=== PATIENT | male | born 1950 | race Caucasian/White ===

== ENCOUNTER 2017-02-03 07:26 | Day surgery (SDC) | payer BC ==
--- NOTE | 2017-01-25 15:37 | HP ---
PREOPERATIVE HISTORY AND PHYSICAL: DATE OF SURGERY/ADMISSION: 02/03/17. DATE OF OFFICE VISIT/ENCOUNTER: 01/25/17 ATTENDING SURGEON: Marge Ogden MD. PROCEDURE: Left hand Dupuytren's excision. CHIEF COMPLAINT: Dupuytren's nodules, left hand. 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 Dr. Ogden has performed surgery in the past for Du puytren's contracture of his left ring finger that has been doing well, however he has three Dupuytr en's nodules in the palm of his hand currently that have become quite bothersome, particularly when he tries to hold on to things. He is interested having these surgically excised and has consented t o proceed with surgery. PAST MEDICAL HISTORY: 1. Hypercholesterolemia. 2. Mild depression. 3. Diverticulitis. PAST SURGICAL HISTORY: 1. Dupuytren's excision, left hand approximately 10 years ago. 2. Rotator cuff repair, bilateral shoulders. 3. Tonsillectomy, adenoidectomy. CURRENT MEDICATIONS: 1. Aspirin 81 mg daily. 2. Atorvastatin calcium 10 mg daily. 3. Divalproex sodium ER 500 mg 2 tabs q.h.s. 4. Duloxetine HCL 30 mg 1 tab b.i.d. ALLERGIES: ACHROMYCIN causes hives. FAMILY MEDICAL HISTORY: Heart disease and prostate cancer. 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 He denies tobacco use. He denie s recreational drug use. He does admit to alcohol use on regular occasions. REVIEW OF SYSTEMS: General: Negative for fevers, chills, or night sweats. No known anesthesia pro blems. HEENT: Negative for headache, lightheadedness, or syncopal episodes. Integumentary: Negat jessica for abrasions, lesions, or open wounds. Cardiothoracic: Negative for hypertension, chest pain, palpitations, or edema. Pulmonary: Negative for shortness of breath with exertion, chronic cough, COPD. GI: Negative for nausea, vomiting, diarrhea, constipation or GERD. : Negative for noctur ia, urinary frequency, urgency, history of UTIs or kidney problems. Musculoskeletal: Positive for current complaint. Negative for chronic or intermittent back pain or history of fractures. Neurolo gical: Negative for paresthesias, numbness, history of seizure, stroke, or epilepsy. Endocrine: Ne gative for diabetes or thyroid issues. Hematologic: Negative for easy bruising, anemia, excessive bleeding or history of DVT. Infectious Disease: Negative for history of MRSA, hepatitis C, or HIV. PHYSICAL EXAMINATION GENERAL: Well-developed, well-nourished 66-year-old male, in no acute distress. VITAL SIGNS: Height 5 feet 11.5 inches, weight 194 pounds, pulse rate 80, blood pressure 136/84. HEENT: Normocephalic, atraumatic. Pupils are equal, round, and reactive to light and accommodation . Extraocular movements are intact. NECK: Supple. No palpable lymph nodes. Throat is clear. PULMONARY: Lungs are clear to auscultation bilaterally. No wheezes, rales or rhonchi. CARDIOVASCULAR: Regular rate and rhythm. S1 and S2. No murmurs, rubs or gallops. No edema. ABDOMEN: Positive bowel sounds. Soft, nontender. MUSCULOSKELETAL: On exam of his left upper extremity, he has 3 palpable and visible nodules in the palms. There is some pitting associated with one of the nodules. They are tender to palpation. He has full flexion and extension of his fingers. Neurovascular function is intact. Skin is intact. NEUROLOGIC: Alert and oriented x3. Cranial nerves II through XII are intact. Sensation is intact t o light touch. PERIPHERAL VASCULAR: 2+ radial and ulnar pulses. Negative Beau test. IMPRESSION: Dupuytren's nodules, left hand. PLAN: The patient is scheduled to undergo a left hand Dupuytren's excision with Dr. Ogden on . He will return to the office in 10 to 14 days postop for followup and suture removal. A prescr iption for [place] was e-scribed to the patient's pharmacy for postoperative pain management. MAHIN LOPEZ [id number]/[facility] #: [id number]
[~2017-02-03 07:26] MED LIST: Buffered Lidocaine 1% SYR 3ML* 3 ML/SYR SYRINGE INTRADERM ONE; Dexamethasone IV* 4 MG/ML 1 ML (4 MG) IV SLOW PU ONE; Dexamethasone IV* 4 MG/ML 1 ML (4 MG) ONE; Famotidine IV* 10 MG/ML 2 ML (20 mg) IV ONE; Famotidine IV* 10 MG/ML 2 ML (20 mg) ONE; Lidocaine 1% INJ* 10 MG/ML 30 ML SDV ONE
[2017-02-03] MEDS ORDERED: DiMENhydriNATE IV* 50 MG/ML VIAL IV PUSH PRN (07:27)
[2017-02-03] MEDS ORDERED: fentaNYL* 50 MCG/ML 2 ML VIAL (100 MCG VIAL) IV PRN (07:27)
[2017-02-03] MEDS ORDERED: Ondansetron INJ* 2 MG/ML VIAL IV PRN (07:27)
[2017-02-03] MEDS ORDERED: PROCHLORPERAZINE INJ 5 MG/ML 2 ML VIAL IV PRN (07:27)
[2017-02-03] MEDS ORDERED: HYDROmorphone* 1 MG/ML 1 ML SYR IV PRN (07:27)
[2017-02-03] MEDS ORDERED: Midazolam* 1 MG/ML 2 ML VIAL (2 MG) ONE (07:32)
[2017-02-03] MEDS ORDERED: fentaNYL* 50 MCG/ML 2 ML VIAL (100 MCG VIAL) ONE (07:32)
[2017-02-03] MEDS ORDERED: ceFAZolin 2 GM PREMIX(*) 2 GM/50 ML BAG IVPB ONE (07:33)
[2017-02-03] MEDS ORDERED: Lidocaine 1% INJ* 10 MG/ML 30 ML SDV ONE (08:54)
[2017-02-03] MEDS ORDERED: Meperidine SYRINGE* 50 MG/ML ONE (09:34)
[2017-02-03] MEDS ORDERED: HYDROmorphone* 1 MG/ML 1 ML SYR ONE (09:34)
[2017-02-03] MEDS ORDERED: Dexmedetomidine* 200 MCG/2 ML 2 ML VIAL ONE (10:22)
[2017-02-03] MEDS ORDERED: Propofol* 10 MG/ML 20 ML BTL IV PUSH ONE (10:22)
[2017-02-03] MEDS ORDERED: Lidocaine 2% PF * 5 ML VIAL ONE (10:22)
[2017-02-03 10:54] VITALS: BP 138/97
--- NOTE | 2017-02-03 23:37 | OP ---
DATE OF OPERATION: 02/03/17 [facility] DATE OF : 50 SURGEON: Marge Ogden MD [address] WORKER: MAHIN Gtz ANESTHESIA: Local MAC. PRE-OP DIAGNOSIS: Dupuytren's nodules in the left hand. POST-OP DIAGNOSIS: Dupuytren's nodules in the left hand. OPERATIVE PROCEDURE: Removal of Dupuytren's nodules in the left hand. ESTIMATED BLOOD LOSS: Zero. TOURNIQUET TIME: About 20 minutes. INDICATION FOR PROCEDURE: Brandt is a 66-year-old man who has history of Dupuytren's contraction on both hands. He has had contracture released in the left hand and now has residual or recurrent nodules and presents for removal. DESCRIPTION OF PROCEDURE: The patient was brought to the operating room. He was given a sedation anesthetic and a local infiltration of 10 cc of 1% plain lidocaine to the palm of his left hand. Skin of his left hand and forearm were prepped and draped in the usual sterile fashion. The hand and forearm were exsanguinated and the tourniquet elevated to 250 mmHg. There were three nodules. One was removed with an incision over the top and was carefully dissected from the underlying tissue in the skin and sent for pathology. Skin edges were reapproximated. The other two nodules had significant skin adherence. So, an elliptical incision was made around the adherent area of skin where a pocket had formed and the underlying nodules removed from the subcutaneous tissue and sent for pathology. The wounds were irrigated. The skin edges reapproximated with 4-0 nylon suture. The wound was dressed with Xeroform, 4x4, Webril, and an Vinny wrap. The patient tolerated the procedure well and was brought to the recovery room in good condition. [id number]/[facility] #: [id number] MTDD
== END 2017-02-03 10:43 | disposition home or self-care (01) ==
LOC: OREAST 07:26
PROVIDERS: ATTEND Orthopaedic Surgery
DX: M72.0 Palmar fascial fibromatosis [Dupuytren] (principal); E78.00 Pure hypercholesterolemia, unspecified; F32.9 Major depressive disorder, single episode, unspecified; Z79.82 Long term (current) use of aspirin
CPT/HCPCS: 88304; J0690; J1100; J1170; J2001; J2250; J2704; J3010

== ENCOUNTER 2019-12-03 10:04 | Day surgery (SDC) | payer MEDICARE, BC ==
--- NOTE | 2019-11-21 14:48 | HP ---
PREOPERATIVE HISTORY AND PHYSICAL: DATE OF ADMISSION/SURGERY: 12/03/19 - [facility] DATE OF OFFICE VISIT/ENCOUNTER: 11/13/19 ATTENDING SURGEON: Marge Montemayor MD.* (DICTATED BY MAHIN LOPEZ) PROCEDURE: Dupuytren excision, right ring and small fingers. HISTORY OF PRESENT ILLNESS: This is a 69-year-old male who has had ongoing issues with Dupuytren nodules and contractures over several years. He has been treated in the past with Xiaflex injections that was at the end of 2019. The patient has not been entirely satisfied with the amount of range of motion he gained with the Xiaflex. He is now interested in pursuing surgical intervention for his right hand and the Dupuytren tissue that affects his ring and small fingers. PAST MEDICAL HISTORY: 1. Hypercholesterolemia. 2. Diverticulosis. PAST SURGICAL HISTORY: 1. Right rotator cuff repair. 2. Dupuytren excision, left hand. 3. Tonsillectomy/adenoidectomy. CURRENT MEDICATIONS: 1. Atorvastatin calcium 10 mg daily. 2. Methylfolate 15 mg daily. ALLERGIES: ACHROMYCIN causes hives. FAMILY MEDICAL HISTORY: Stroke, cancer. 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 He denies tobacco use and recreational drug use. He drinks alcohol on occasion. REVIEW OF SYSTEMS: Negative for general, cephalic, cardiovascular, respiratory , GI/, other musculoskeletal, integumentary, endocrine, neurologic, and hematologic symptoms. Infectious disease: Negative for MRSA, hepatitis C, HIV. PHYSICAL EXAMINATION GENERAL: Well-developed, well-nourished 69-year-old male in no acute distress. VITAL SIGNS: Height 5 feet 11-1/2 inches, weight 192 pounds, pulse rate 68, blood pressure 138/80. HEENT: Normocephalic, atraumatic. Pupils are equal, round, and reactive to light and accommodation. Extraocular movements are intact. NECK: Supple. No palpable lymph nodes. Throat is clear. PULMONARY: Lungs are clear to auscultation bilaterally. No wheezes, rales, or rhonchi. CARDIOVASCULAR: Regular rate and rhythm. S1, S2. No murmurs, rubs, or gallops. ABDOMEN: Positive bowel sounds, soft, nontender. MUSCULOSKELETAL: On exam of his right hand, he has Dupuytren tissue, nodules, and cords which affect primarily his ring and small finger MP joints. He has approximately a 20- to 30-degree contracture at the MP joint of both of those fingers. He has good flexion of the fingers. Skin is intact. Neurovascular function is intact. NEUROLOGIC: Alert and oriented x3. Cranial nerves II through XII are intact. Sensation is intact to light touch. IMPRESSION: Dupuytren contracture, right hand affecting the ring and small fingers. PLAN: The patient is scheduled to undergo Dupuytren excision, right ring and small fingers with Dr. Montemayor on 12/03/19. He will return to the office 10 days postop for followup and suture removal. A prescription for [place] was e-scribed to the patient's pharmacy for postoperative pain management. MAHIN LOPEZ [id number]/[facility] #: [id number] JUAN
[~2019-12-03 10:04] MED LIST changes: -Buffered Lidocaine 1% SYR 3ML* 3 ML/SYR SYRINGE INTRADERM ONE; +Buffered Lidocaine 1% SYRIN* 1 ML/SYRINGE INTRADERM ONE; -Dexamethasone IV* 4 MG/ML 1 ML (4 MG) ONE; -Famotidine IV* 10 MG/ML 2 ML (20 mg) ONE; +Lactated Ringers 1000 ML Bag* 1,000 ML IV SCH
[2019-12-03] MEDS ORDERED: oxyCODONE/Acetamin 5/325 MG* TAB PO PRN (10:11)
[2019-12-03] MEDS ORDERED: HYDROcodone/ACETAMIN 5-325 MG* 1 TAB PO PRN (10:11)
[2019-12-03] MEDS ORDERED: fentaNYL* 50 MCG/ML 2 ML VIAL (100 MCG VIAL) IV PRN (10:11)
[2019-12-03] MEDS ORDERED: DiMENhydriNATE IV* 50 MG/ML VIAL IV PUSH PRN (10:11)
[2019-12-03] MEDS ORDERED: Naloxone* 0.4 MG/ML 1 ML VIAL IV PRN (10:11)
[2019-12-03] MEDS ORDERED: Midazolam* 1 MG/ML 2 ML VIAL (2 MG) ONE (12:08)
[2019-12-03] MEDS ORDERED: Lidocaine 2% PF * 5 ML VIAL ONE (12:08)
[2019-12-03] MEDS ORDERED: Propofol* 10 MG/ML 20 ML BTL ONE ×2 (12:08→14:00)
[2019-12-03] MEDS ORDERED: fentaNYL* 50 MCG/ML 2 ML VIAL (100 MCG VIAL) ONE ×3 (12:08→14:18)
[2019-12-03] MEDS ORDERED: Ketorolac INJ* 30 MG/ML 1 ML VIAL ONE (13:14)
[2019-12-03] MEDS ORDERED: KETAMINE HCL* 50 MG/ML 10 ML VIAL ONE (14:02)
[2019-12-03] MEDS ORDERED: hydrALAZINE IV* 20 MG/ML VIAL ONE (14:11)
[2019-12-03 15:09] VITALS: BP 114/66
--- NOTE | 2019-12-04 10:27 | OP ---
DATE OF OPERATION: 12/03/[address] [facility] DATE OF : 50 SURGEON: Marge Montemayor MD [employer] AUTHOR: MAHIN Gtz ANESTHESIA: Local MAC. PRE-OP DIAGNOSIS: Right ring and small finger Dupuytren's contracture. POST-OP DIAGNOSIS: Right ring and small finger Dupuytren's contracture. OPERATIVE PROCEDURE: Right ring and small finger Dupuytren's excision. ESTIMATED BLOOD LOSS: Zero. TOURNIQUET TIME: About an hour. INDICATION FOR PROCEDURE: Brandt is a 69-year-old male who has Dupuytren's contracture of his ring and small fingers, has gradually progressed over time. He has failed conservative treatment and presents for Dupuytren's excision. DESCRIPTION OF PROCEDURE: The patient was brought to the operating room, was given a sedation anesthetic and a local infiltration of total of 30 cc of 1% plain lidocaine in the palm of his right hand. The skin of his right hand and forearm was prepped and draped in the usual sterile fashion. The hand and forearm were exsanguinated and the tourniquet elevated to 250 mmHg. Zigzag incisions were made over both cords up to the PIP joint of both fingers and down into the palm, carefully dissected the two cords away from the skin and away from the neurovascular bundles. The cords were then removed in their entirety and sent for pathology. The little finger had an abductor digiti minimi cord as well as a central cord. All of the Dupuytren's tissue was removed. The wounds were copiously irrigated with saline. The digital neurovascular bundles were retracted by the surgical tech, Siobhan Diaz, whose assistance was essential for safe completion of the case. The skin edges were reapproximated with 4-0 nylon suture and then the wounds were dressed with Xeroform, 4x4, Webril, and an Vinny wrap. The patient tolerated the procedure well and was brought to the recovery room in good condition. [id number]/[facility] #: [id number] [facility]
== END 2019-12-03 15:20 | disposition home or self-care (01) ==
LOC: OREAST 10:04
PROVIDERS: ATTEND Orthopaedic Surgery
DX: M72.0 Palmar fascial fibromatosis [Dupuytren] (principal); E78.00 Pure hypercholesterolemia, unspecified
CPT/HCPCS: 88304; J0360; J1885; J2250; J2704; J3010